=== PATIENT | female | born 2000 | race Caucasian/White ===

== ENCOUNTER 2020-08-16 10:07 | Emergency (ER) | payer BC ==
[~2020-08-16] VITALS: Ht 177.8 cm; Wt 86.4 kg
[2020-08-16 11:21] VITALS: BP 114/66
== END 2020-08-16 11:29 | disposition home or self-care (01) ==
LOC: ER 10:08
DX: H57.11 Ocular pain, right eye (principal); R51.9 Headache, unspecified; H53.149 Visual discomfort, unspecified
CPT/HCPCS: 76512; 99284